=== PATIENT | male | born 1965 | race Caucasian/White ===

== ENCOUNTER 2019-07-28 10:36 | Day surgery (SDC) | payer OTHER ==
[~2019-07-28 10:36] MED LIST: Bupivacaine 0.5% 50 ML MDV ONE; Lidocaine 2% 20 ML MDV ONE
[2019-07-28] MEDS ORDERED: Lactated Ringers 1,000 ML IV SCH (11:30)
[2019-07-28] MEDS ORDERED: Propofol 200 MG/20 ML SDV ONE ×2 (11:35→12:41)
[2019-07-28] MEDS ORDERED: fentaNYL 100 MCG/2 ML SDV ONE (11:35)
[2019-07-28] MEDS ORDERED: Midazolam 1 MG/ML 2 ML SDV ONE (11:35)
[2019-07-28] MEDS ORDERED: ceFAZolin 2 GM in Premix Bag 1 BAG IV ONE (12:00)
--- NOTE | 2019-07-28 14:07 | OR ---
DATE OF PROCEDURE: 07/28/2019 SURGEON: Gabe Colbert DPM [employer] COORDINATOR: None. PREOPERATIVE DIAGNOSIS: Recurrent diabetic foot ulcer due to pressure underneath the 4th metatarsal head, left foot. POSTOPERATIVE DIAGNOSIS: Recurrent diabetic foot ulcer due to pressure underneath the 4th metatarsal head, left foot. PROCEDURE: Partial 4th metatarsal head resection, left foot. ANESTHESIA: Local with IV sedation. Hemostasis was obtained with a calf tourniquet on left calf at 250 mmHg. ESTIMATED BLOOD LOSS: 10 mL. MATERIALS: None. INJECTABLES: A total of 15 mL of Marcaine 0.5% plain were injected preoperatively. PATHOLOGY: None. CONDITION: Stable. INDICATIONS FOR SURGERY: Recurrent ulceration on the plantar aspect of the left 4th metatarsal head that was not responsive to conservative measures. PROCEDURE IN DETAIL: Patient was brought in to the operating room, placed on the operating table in supine position. Following IV sedation, anesthesia was obtained with a total of 15 mL of Marcaine 0.5% plain. The left foot was then scrubbed, prepped, and draped in the usual aseptic manner and raised to 60 degrees for hemostasis. It was exsanguinated with an Esmarch bandage and then tourniquet was inflated. Foot was lowered to table. Skin incision was made on the dorsal aspect of the left 4th ray from the proximal phalanx down to approximately mid shaft of the 4th metatarsal. Incisions were deepened through subcutaneous tissues with care taken to identify and retract all vital neurovascular structures. Bleeders were cauterized and tied off with 3-0 Vicryl. The 4th metatarsal was identified and the 4th metatarsophalangeal joint was identified. The 4th toe was plantar flexed, and the distal proximal aspect of the 4th metatarsal head was then removed using a sagittal saw from dorsal distal to plantar proximal approximately half of the plantar aspect of the metatarsal head with some of the joint surface was removed. We did palpate then after the removal of approximately 5 mm of the thickness of the bone had been removed. We did palpate afterwards to make sure that there was less pressure underneath than before the removal and we found that there was. We then flushed the incision with copious amounts of sterile saline. Subcutaneous closure was done with 3-0 Vicryl in a box stitch configuration. Skin closure was done with 3-0 Prolene in a horizontal mattress on the proximal aspect of the incision but distally we used simples and then we dressed the foot with Xeroform, 4x4s, Kerlix, and Coban. The patient was told to ideally to keep as much weight off it possible, but if he has to put some weight on the left foot, just put it on the heel and just with his Cam boot on. Patient was told to rest and elevate the left foot. Keep dressings clean, dry, and intact. To go to the emergency room immediately if he has any nausea, vomiting, fever, chills, chest pain, calf pain, or difficulty breathing and to return to clinic for followup in 1 week, at which time, he will be re-evaluated. Gabe Colbert DPM /[id number]
== END 2019-07-28 15:06 | disposition home or self-care (01) ==
LOC: JP.SDS 10:36
PROVIDERS: ATTEND Podiatrist Foot & Ankle Surgery
DX: E11.621 Type 2 diabetes mellitus with foot ulcer (principal); L97.529 Non-pressure chronic ulcer of other part of left foot with unspecified severity; I48.20 Chronic atrial fibrillation, unspecified; I10 Essential (primary) hypertension; E11.610 Type 2 diabetes mellitus with diabetic neuropathic arthropathy; E11.42 Type 2 diabetes mellitus with diabetic polyneuropathy; Z98.84 Bariatric surgery status; Z98.890 Other specified postprocedural states; Z87.891 Personal history of nicotine dependence; Z79.01 Long term (current) use of anticoagulants; Z79.4 Long term (current) use of insulin; Z79.899 Other long term (current) drug therapy; Z79.82 Long term (current) use of aspirin
CPT/HCPCS: 28288; 76000; J0690; J2250; J2704; J3010; J3490; J7120; J2001